=== PATIENT | female | born 1970 | race Two or more races ===

== ENCOUNTER 2019-05-15 19:09 | Emergency (ER) | payer BC, OTHER ==
[~2019-05-15] VITALS: Ht 170.2 cm; Wt 68.0 kg
--- NOTE | 2019-05-15 19:37 | NUR ---
PT BIB [facility] WITH A C/O LT ELBOW PAIN. PAIN WITH MOVEMENT AND PALPATION. EDEMA NOTED. WARM TO TOUCH. PT WAS ALSO FEELING EXTREMELY ANXIOUS. PT WAS TRIAGED AND TAKEN TO ER 4. PT WAS PLACED ON THE MONITOR AND CONTINUOUS PULSE OX. RESP EVEN AND UNLABORED. PT'S IS AT THE BEDSIDE.
[2019-05-15] MEDS ORDERED: IBUPROFEN 400 MG TABLET PO ONE (20:00)
[2019-05-15] MEDS ORDERED: IBUPROFEN 400 MG TABLET ONE (20:01)
--- NOTE | 2019-05-15 20:30 | NUR ---
Patient discharged to home in stable condition. Written and verbal after care instructions given. Patient verbalizes understanding of instruction AND RX. PT AMBULATED OUT WITH A STEADY GAIT. VSS. NAD NOTED. PT'S IS DRIVING PT HOME.
[2019-05-15 21:02] VITALS: BP 142/96
== END 2019-05-15 20:30 | disposition home or self-care (01) ==
LOC: EDSEX 19:11 → ER 19:11
DX: M70.22 Olecranon bursitis, left elbow (principal); I10 Essential (primary) hypertension; Y93.89 Activity, other specified